=== PATIENT | female | born 1990 | race Caucasian/White ===

== ENCOUNTER 2024-08-24 12:28 | Emergency (ER) | payer SELFPAY ==
[2024-08-24 12:33] VITALS: BP 119/81
--- NOTE | 2024-08-24 14:58 | ED.GENMED ---
History of Present Illness
General
Chief Complaint: Fever
Source: patient
Exam Limitations: none
Time Seen by Provider: 08/24/24 14:27
History of Present Illness
History of Present Illness:
n this patient is a 34-year-old female presents emergency department with complaints of a rash and recurrent fevers. Interestingly, the patient was hospitalized last Tuesday when she had reported left neck swelling and was diagnosed with
lymphadenopathy suspicious for malignancy associated with fever. She had a very extensive workup which I reviewed, including echocardiogram, CTs, biopsies, etc. Her workup was essentially unremarkable for malignancy or identifiable infection to my
review. She was discharged feeling well on August 16 with prescriptions for Augmentin and Bactrim. Then, on Tuesday she developed a slight fever and since then is recorded/reported intermittent low-grade fever associated with nausea and fatigue. 2
days ago, she developed a rash 'all over' that persists. She worried this may be a drug reaction and discontinued the Augmentin but continues to take her Bactrim. She is here today because of the continuing symptoms. She denies abdominal pain,
vomiting, sore throat, vaginal pain or discharge, chest pain, throat tightness, dyspnea, bleeding, or other complaints.
Past History
Past History
ED Past Medical History: None
ED Past Surgical History: Orthopedic
Social History
Tobacco: Smoker
Alcohol: Occasional
Drug: None
Living: with family
Employment: Employed
Phy Exam
Physical Exam
Physical Exam:
GENERAL: Alert , in no apparent distress
EYE: pupils equal and reactive, no photophob, conj clear,no d/c
NECK: Supple, no significant adenopathy.
ENT: o/p clr, mmm, no intraorallesions noted,speech cear.
CARDIAC: Regular rate and rhythm .
LUNGS: Clear breath sounds bilaterally, no acute respiratory distress, no wheezes/rales/rhonchi
ABDOMEN: Soft, without focal tenderness, no r/g, no cvat
NEUROLOGICAL: Alert and oriented, no focal neuro deficits
SKIN: Warm and dry, skin intact. There is a diffuse drug eruption appearing rash no associated sts, no mucosa involvement
MUSCULOSKELETAL: No edema, well perfused.
PSYCH: Normal and appropriate interaction.
Course
Orders/Labs/Results
Orders:
Orders
08/24/24 14:49
Prednisone [Deltasone] 50 mg PO NOW STA
Vital Signs
Initial and Last Documented VS:
Initial Vital Signs
Temp Pulse Resp BP Pulse Ox
98.8 F 109 16 119/81 98
08/24/24 12:33 08/24/24 12:33 08/24/24 12:33 08/24/24 12:33 08/24/24 12:33
Last Documented Vital Signs
Temp Pulse Resp BP Pulse Ox
98.8 F 109 16 119/81 98
08/24/24 12:33 08/24/24 12:33 08/24/24 12:33 08/24/24 12:33 08/24/24 12:33
*Pulse Oximetry
SaO2: 98
Oxygen Mode of Delivery: Room air
Update Note
Update Note:
Patient presents to the Emergency Department with ____rash, intermittent fever
Number and Complexity of Problems Addressed at the Encounter
� Chronic conditions affecting care:
� Acute Exacerbation and/or Progression of Chronic Illness:
� Differential Diagnosis includes:but not limited to fuo, drug eruption, sjs, viral illness
Amount and/or Complexity of Data to be Reviewed and Analyzed
� I performed an independent evaluation of and my interpretation is:
EKG:
CT:
Xrays:
Laboratory Studies:
Other:
� Review of other/old records reveals:
� Clinical information was obtained by an independent historian:neighbor ad friend at bedside
� Prescriptions/Medications Considered but not given:
� Further testing considered but not performed:
Risk of Complications and/or Morbidity or Mortality of Patient Management
� Social determinants of health affecting care:
� Discussion with other providers (PCP, Hospitalists, Consultants, etc):
� Escalation of care including admission/observation vs risk of discharge considered:Pt well appearing, in nad, rash not c/w ten/sjs, etc. Not septic, nontoxic. Extensive bowie very recently unremkarakble. d/w pt import of f/u and
reasons to rted.
ED Attending Note
-
Portions of this chart may have been created with voice recognition software.� Occasional wrong word or��sound alike� substitutions may have occurred due to the inherent limitations of voice recognition software.
Discharge Plan
Departure
Patient Disposition: Home (Routine Discharge)
Date of Disposition: 08/24/24
Time of Disposition: 15:08
Patient with high blood pressure during this ER visit?: Yes
Condition: Good
Discharge Problem:
Rash
Instructions: Skin rash - ED discharge instructions, BLOOD PRESSURE
Prescriptions:
New
prednisone 50 mg tablet
50 mg PO DAILY Qty: 5 0RF
Referrals:
Gertrude Matson MD [Active, Infectious Diseases] - Next open appointment
Activity Restrictions/Additional Instructions:
IF YOUDEVELOPE THROAT TIGHTNESS, WORSENING OR NEW RASH, CHEST PAIN, SHORTNESS OF BREATH, LIP OR TONGUE SWELLING, TROUBLE SWALLOWING, OR OTHER WORRISOME SIGNS, PLEASE RETURN TO THE ER IMMEDIATELY!
Interventions
Interventions:
*Risk Screen - Suicide Last Done: 08/24/24 12:33
*Neglect/Abuse Screening Last Done: 08/24/24 12:33
ED- Neurological Assessment Last Done: 08/24/24 14:46
Discharge Date and Time
Print Language: BELARUSIAN
[2024-08-24] MEDS: DELTASONE 50 MG PO (15:16)
== END 2024-08-24 15:37 | disposition home or self-care (01) ==
LOC: EMR 12:28
PROVIDERS: EMERGENCY PHYSICIAN Emergency Medicine
DX: R21 Rash and other nonspecific skin eruption (principal); R50.9 Fever, unspecified; R11.0 Nausea; R53.83 Other fatigue; R03.0 Elevated blood-pressure reading, without diagnosis of hypertension; F17.200 Nicotine dependence, unspecified, uncomplicated; Z88.1 Allergy status to other antibiotic agents
CPT/HCPCS: 99283